=== PATIENT | male | born 1965 | race Caucasian/White ===

== ENCOUNTER 2017-05-23 00:28 | Emergency (ER) | payer MEDICAID ==
[2017-05-23] MEDS ORDERED: MORPHINE 2 MG/ML SYRINGE IVP STA (01:17)
[2017-05-23] MEDS ORDERED: MORPHINE 2 MG/ML SYRINGE ONE ×2 (01:18)
[2017-05-23] MEDS ORDERED: SODIUM CHLORIDE FLUSH 0.9% 10 ML SYRINGE IVP ONE (01:19)
[2017-05-23] MEDS ORDERED: KETOROLAC 60 MG/2 ML VIAL IVP STA (02:01)
[2017-05-23] MEDS ORDERED: HYDROmorphone 1 MG/ML SYRINGE IVP STA (02:01)
[2017-05-23] MEDS ORDERED: KETOROLAC 30 MG/ML VIAL ONE (02:02)
[2017-05-23] MEDS ORDERED: HYDROmorphone 1 MG/ML SYRINGE ONE (02:02)
[2017-05-23] MEDS ORDERED: TAMSULOSIN 0.4 MG CAPSULE PO STA (02:32)
[2017-05-23] MEDS ORDERED: TAMSULOSIN 0.4 MG CAPSULE ONE (02:34)
== END 2017-05-23 02:42 | disposition home or self-care (01) ==
DX: N20.1 Calculus of ureter (principal)
CPT/HCPCS: 36415; 74176; 80053; 81001; 83690; 85025; 96374; 96375; 99283; 99284; A9270; J1170

== ENCOUNTER 2018-02-17 07:02 | Emergency (ER) | payer MEDICAID ==
[2018-02-17] MEDS ORDERED: DEXAMETHASONE 10 MG/ML VIAL PO STA (08:21)
--- NOTE | 2018-02-17 08:24 | ED Physician Documentation ---
PD HPI NECK PAIN - Stated complaint Stated Complaint: NECK PX - Chief complaint Chief Complaint: Back Pain - History obtained from History obtained from: Patient - History of Present Illness Timing - onset: How many weeks ago (3) Timing - duration: Weeks Timing - details: Gradual onset, Still present Location: Lower Quality: Pain, Spasm, Sharp, Similar to prior episodes Associated symptoms: No: Fever, Weakness, Numbness, Incontinent of urine, Unable to urinate, Hematuria, Incontinent of stool Improves with: Rest, Ice, Position Worsened by: Movement Contributing factors: Lifting, Other (Patient lifted two propane tanks out of the trunk of a car 3 weeks ago.) Similar symptoms before: Diagnosis (pinched nerve) Recently seen: Not recently seen - Additional information Additional information: 52-year-old male lifted to propane tanks out of the trunk of a car about 3 weeks ago. 2 days later he developed pain in his back above his shoulder blades midline and this is been present since. He does have some pain radiating down his right arm periodically and he has not been able to get control of the pain. He has sometimes where the pain is resolved and he is comfortable. Review of Systems Constitutional: denies: Fever Eyes: denies: Decreased vision Ears: denies: Ear pain Nose: denies: Congestion Throat: denies: Sore throat Cardiac: denies: Chest pain / pressure Respiratory: denies: Dyspnea, Cough GI: denies: Abdominal Pain, Nausea, Vomiting : denies: Dysuria, Frequency Skin: denies: Rash Musculoskeletal: reports: Neck pain, Back pain, Extremity pain Neurologic: denies: Generalized weakness, Focal weakness, Numbness PD PAST MEDICAL HISTORY - Past Medical History GI: GERD : Kidney stones Musculoskeletal: Chronic back pain, Other Derm: Psoriasis Other Past Medical History: 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 - Past Surgical History Past Surgical History: No - Present Medications Home Medications: Ambulatory Orders Medication Instructions Recorded Confirmed Cyclobenzaprine [Flexeril] 10 mg PO TID PRN #20 tablet 02/17/18 HYDROcod/ACETAM 5/325 [[place] 5/325] 1 - 2 ea PO Q6H PRN #15 tablet 02/17/18 - Allergies Allergies/Adverse Reactions: Allergies Allergy/AdvReac Type Severity Reaction Status Date / Time No Known Drug Allergies Allergy Verified 05/23/17 00:41 - Social History Does the pt smoke?: No Smoking Status: Never smoker Does the pt drink ETOH?: No Does the pt have substance abuse?: No - Immunizations Immunizations are current?: No - POLST Patient has POLST: No PD ED PE NORMAL - Vitals Vital signs reviewed: Yes (hypertensive) - General General: Alert and oriented X 3, Well developed/nourished, Other (Facial expression of pain with interior wirer tone and flattened affect.) - HEENT HEENT: Atraumatic, PERRL, EOMI - Neck Neck: Supple, no meningeal sign, No bony TTP - Respiratory Respiratory: No respiratory distress - Back Back: No CVA TTP, Other (There is specific tenderness to the midline spine over the T4 area) - Derm Derm: Normal color, Warm and dry, No rash - Extremities Extremities: No deformity, No edema - Neuro Neuro: No motor deficit, No sensory deficit Eye Opening: Spontaneous Motor: Obeys Commands Verbal: Oriented GCS Score: 15 - Psych Psych: Normal mood, Normal affect Results - Vitals Vitals: Vital Signs - 24 hr 02/17/18 07:17 Temperature 36.8 C Heart Rate 89 Respiratory 16 Rate Blood Pressure 148/92 H O2 Saturation 98 Oxygen O2 Source Room air PD MEDICAL DECISION MAKING - ED course Complexity details: considered differential, d/w patient ED course: 52-year-old male with strain to the upper back after lifting incident 3 weeks ago has persistence of pain. He is treated with dexamethasone here in the emergency department and we will provide a short course of pain medication and muscle relaxant. Departure - Departure Disposition: 01 Home, Self Care Clinical Impression: Strain of thoracic spine Qualifiers: Encounter type: initial encounter Qualified Code(s): S29.019A - Strain of muscle and tendon of unspecified wall of thorax, initial encounter Condition: Stable Instructions: ED Sprain Strain Neck Follow-Up: [facility] [Provider Group] Prescriptions: Cyclobenzaprine [Flexeril] 10 mg PO TID PRN #20 tablet PRN Reason: Spasms HYDROcod/ACETAM 5/325 [[place] 5/325] 1 - 2 ea PO Q6H PRN #15 tablet PRN Reason: Pain
[2018-02-17 08:41] VITALS: BP 141/88
== END 2018-02-17 08:39 | disposition home or self-care (01) ==
LOC: ED 07:02
DX: S29.012A Strain of muscle and tendon of back wall of thorax, initial encounter (principal); X50.0XXA Overexertion from strenuous movement or load, initial encounter
CPT/HCPCS: 99283

== ENCOUNTER 2018-03-12 11:37 | Outpatient (CLI) | payer MEDICAID ==
--- NOTE | 2018-03-12 13:46 | XRAY Report ---
THREE VIEW CERVICAL SPINE: 03/12/2018 CLINICAL INDICATION: Radiculopathy. FINDINGS: AP, lateral, odontoid views of the cervical spine demonstrate mild degenerative disk disease. There is no evidence of fracture. The prevertebral soft tissues are unremarkable. IMPRESSION: MILD DEGENERATIVE CHANGES. TD: 03/12/2018 13:45
== END 2018-03-12 11:38 | disposition home or self-care (01) ==
LOC: DI.N 11:37
PROVIDERS: ATTEND Nurse Practitioner
DX: M50.30 Other cervical disc degeneration, unspecified cervical region (principal)
CPT/HCPCS: 72040

== ENCOUNTER 2023-01-04 09:00 | Outpatient (CLI) | payer MEDICAID ==
[2023-01-04 12:46] LABS: FECAL OCCULT BLOOD (FIT) NEGATIVE (NEGATIVE)
== END 2023-01-04 23:59 | disposition home or self-care (01) ==
LOC: LAB.N 09:00
PROVIDERS: ATTEND Nurse Practitioner
DX: Z12.11 Encounter for screening for malignant neoplasm of colon (principal)
CPT/HCPCS: 82274